=== PATIENT | male | born 1975 | race Caucasian/White ===

== ENCOUNTER → 2019-05-01 | Outpatient (CLI) | payer OTHER ==
[2019-05-01 10:29] LABS: HEMATOCRIT 44.7 % (37.9-51.0); HEMOGLOBIN 15.5 g/dL (13.5-17.0); MEAN CORPUSCULAR HEMOGLOBIN 31.7 pg (27.0-33.4); MEAN CORPUSCULAR HGB CONC 34.7 g/dL (32.0-36.0); MEAN CORPUSCULAR VOLUME 92 fl (80-97); PLATELET COUNT 242 10^3/uL (150-450); RED BLOOD COUNT 4.89 10^6/uL (4.35-5.55); RED CELL DISTRIBUTION WIDTH 12.7 % (11.5-14.0); WHITE BLOOD COUNT 6.5 10^3/uL (4.0-10.5)
[2019-05-01 10:50] LABS: ALBUMIN 4.3 g/dL (3.5-5.0); ALKALINE PHOSPHATASE 68 U/L (38-126); ANION GAP 8 (5-19); ASPARTATE AMINO TRANSFERASE 23 U/L (17-59); BILIRUBIN,DIRECT 0.2 mg/dL (0.0-0.4); BILIRUBIN,TOTAL 0.8 mg/dL (0.2-1.3); BLOOD UREA NITROGEN 13 mg/dL (7-20); CALCIUM 9.6 mg/dL (8.4-10.2); CARBON DIOXIDE 30 mmol/L (22-30); CHLORIDE 104 mmol/L (98-107); CHOLESTEROL 208.29 mg/dL (0-200); GLUCOSE 107 mg/dL (75-110); POTASSIUM 4.8 mmol/L (3.6-5.0); TOTAL PROTEIN 7.4 g/dL (6.3-8.2); TRIGLYCERIDES 164 mg/dL (<150)
[2019-05-01 11:01] LABS: DIRECT LDL 143 mg/dL (<100)
[2019-05-01 11:04] LABS: VLDL CHOLESTEROL 32.8 mg/dL (10-31)
[2019-05-02 14:07] LABS: PROSTATE SPECIFIC ANTIGEN 0.4 ng/mL (0.0-4.0); PSA % FREE 12.5 % (.); PSA FREE 0.05 ng/mL
== END ==
LOC: OD 09:41
PROVIDERS: ATTEND Family Medicine
DX: E78.5 Hyperlipidemia, unspecified (principal); I10 Essential (primary) hypertension; R53.83 Other fatigue; E66.01 Morbid (severe) obesity due to excess calories
CPT/HCPCS: 36415; 80053; 80061; 83036; 83525; 84154; 84403; 84443; 85027